=== PATIENT | female | born 1955 | race Two or more races ===

== ENCOUNTER 2017-05-30 09:57 | Inpatient (IN) | payer MEDICAID ==
[~2017-05-30] VITALS: Ht 147.3 cm; Wt 61.5 kg
[2017-05-30 10:39] LABS: Basophils # (auto) 0 uL; Basophils % (auto) 0.7 % (0.0-2.0); Eosinophils # (auto) 0.1 uL; Eosinophils % (auto) 2.5 % (0.0-7.0); Hematocrit 37.6 % (36.0-46.0); Hemoglobin 12.6 g/dL (12.2-16.2); Lymphocytes # (auto) 1.9 uL; Lymphocytes % (auto) 37.2 % (10.0-50.0); Mean Corpuscular Hemoglobin 30.5 pg (28.0-32.0); Mean Corpuscular Hgb Conc. 33.6 g/dL (32.0-36.0); Mean Corpuscular Volume 90.8 fL (80.0-100.0); Monocytes # (auto) 0.3 uL; Monocytes % (auto) 6.6 % (0.0-12.0); Neutrophils # (auto) 2.7 uL; Nucleated Red Blood Cells % 0.2 %; Platelet Count (auto) 147 10^3/uL (140-450); Red Blood Cells 4.14 10^6/uL (4.0-5.20); Red Cell Distribution Width 13.6 % (11.8-14.3)
[2017-05-30 10:57] LABS: Albumin 3.3 g/dL (3.4-5.0); Bilirubin, Total 0.4 mg/dL (0.2-1.0); Calcium 8.1 mg/dL (8.5-10.1); Magnesium 2.5 mg/dL (1.6-2.6); Total Protein 6.4 g/dL (6.4-8.2)
[2017-05-30] MEDS ORDERED: ASPirin-EC 81 mg tab PO ONE ×2 (13:15→14:00)
[2017-05-30 13:18] LABS: INR 0.95 (0.9-1.15); Partial Thromboplastin Time 25.7 sec (22.64-33.71); Prothrombin Time 10.4 sec (9.37-12.3)
[2017-05-30] MEDS ORDERED: METOPROLOL SUCCINATE XL 50 MG TAB PO ONE (14:00)
[2017-05-30] MEDS ORDERED: METHADONE HCL 10 MG TAB PO ONE (14:00)
[2017-05-30] MEDS ORDERED: CLOPIDOGREL BISULFATE 75 MG TAB PO ONE (14:00)
[2017-05-30] MEDS ORDERED: ONDANSETRON HCL 4 MG/2 ML VIAL IV PRN (14:15)
[2017-05-30] MEDS ORDERED: ALUM & MAG HYDROX-SIMETH LIQ(MAALOX) 30 ML PO ONE (14:15)
[2017-05-30] MEDS ORDERED: MORPHINE SULF INJ 2 MG/ML SYRINGE 1ML IV PRN (14:15)
[2017-05-30] MEDS ORDERED: NITROGLYCERIN 0.4 MG SL TAB SL PRN ×2 (14:15)
[2017-05-30] MEDS ORDERED: ZOLPIDEM TARTRATE 5 MG TAB PO PRN (14:15)
[2017-05-30] MEDS ORDERED: PANTOPRAZOLE 40 MG TAB PO ONE (14:15)
[2017-05-30] MEDS ORDERED: MORPHINE SULFATE 10 MG/ML INJ 1ML SDV IV PRN (14:15)
[2017-05-30 18:42] LABS: Urine Bacteria NONE SEEN /hpf (None Seen); Urine Blood Negative /uL (Negative); Urine Mucus FEW (None Seen); Urine Specific Gravity 1.014 (1.001-1.035); Urine WBC <1 /hpf (0 - 5)
[2017-05-30 22:00] VITALS: BP 136/87
[2017-05-30] MEDS: SODIUM CHLOR 0.9% PF (SALINE LOCK) 10ML VIAL IV SCH (22:21)
[2017-05-30] MEDS: ATORVASTATIN 20 MG TAB PO SCH (22:22)
[2017-05-30] MEDS: ENALAPRIL MALEATE 2.5 MG TAB PO SCH (22:22)
[2017-05-30] MEDS: clonazePAM 0.5 MG TAB PO PRN (22:23)
[2017-05-30] MEDS: ACETAMINOPHEN 325 MG TAB PO PRN (22:23)
[2017-05-30 22:30] VITALS: BP 136/87
[2017-05-30] MEDS ORDERED: CLON0.5T PO (22:38)
[2017-05-30] MEDS ORDERED: ASPI81TA27 PO (22:38)
[2017-05-30] MEDS ORDERED: CLOP75TA28 PO (22:38)
[2017-05-31] MEDS: ACETAMINOPHEN 325 MG TAB PO PRN ×2 (03:01→21:48)
[2017-05-31 05:00] VITALS: BP 123/85
[2017-05-31] MEDS: SODIUM CHLOR 0.9% PF (SALINE LOCK) 10ML VIAL IV SCH ×3 (06:09→21:50)
[2017-05-31] MEDS: PANTOPRAZOLE 40 MG TAB PO SCH (08:13)
[2017-05-31 08:17] LABS: Basophils # (auto) 0.1 uL; Eosinophils # (auto) 0.1 uL; Eosinophils % (auto) 1.9 % (0.0-7.0); Hematocrit 42.4 % (36.0-46.0); Hemoglobin 14.5 g/dL (12.2-16.2); Lymphocytes # (auto) 2.1 uL; Lymphocytes % (auto) 33.6 % (10.0-50.0); Mean Corpuscular Hemoglobin 30.7 pg (28.0-32.0); Mean Corpuscular Hgb Conc. 34.2 g/dL (32.0-36.0); Mean Corpuscular Volume 89.7 fL (80.0-100.0); Monocytes # (auto) 0.3 uL; Monocytes % (auto) 5.3 % (0.0-12.0); Neutrophils # (auto) 3.7 uL; Neutrophils % (auto) 58.2 % (37.0-80.0); Nucleated Red Blood Cells % 0.1 %; Platelet Count (auto) 142 10^3/uL (140-450); Red Blood Cells 4.73 10^6/uL (4.0-5.20); Red Cell Distribution Width 13.6 % (11.8-14.3); White Blood Cell 6.4 10^3/uL (4.4-10.8)
[2017-05-31 08:34] LABS: Albumin 3.3 g/dL (3.4-5.0); BUN/Creatinine Ratio 17.9; Bilirubin, Total 0.5 mg/dL (0.2-1.0); Calcium 8.3 mg/dL (8.5-10.1); Magnesium 2.5 mg/dL (1.6-2.6); Total Protein 6.7 g/dL (6.4-8.2)
[2017-05-31 09:14] VITALS: BP 126/81
[2017-05-31] MEDS: ASPirin-EC 81 mg tab PO SCH (10:22)
[2017-05-31] MEDS: METOPROLOL SUCCINATE XL 50 MG TAB PO SCH (10:23)
[2017-05-31] MEDS: CLOPIDOGREL BISULFATE 75 MG TAB PO SCH (10:23)
[2017-05-31] MEDS: ENALAPRIL MALEATE 2.5 MG TAB PO SCH ×2 (10:24→21:46)
[2017-05-31] MEDS: DOCUSATE SOD 100 MG CAP PO SCH (10:25)
[2017-05-31] MEDS: METHADONE HCL 10 MG TAB PO SCH (10:27)
[2017-05-31] MEDS: clonazePAM 0.5 MG TAB PO PRN ×2 (10:28→21:46)
[2017-05-31 12:06] VITALS: BP 125/64
[2017-05-31 17:18] VITALS: BP 105/77
[2017-05-31 20:00] VITALS: BP 111/80
[2017-05-31] MEDS: ATORVASTATIN 20 MG TAB PO SCH (21:45)
[2017-05-31 21:52] VITALS: BP 111/80
[2017-06-01 05:00] VITALS: BP 97/70
[2017-06-01] MEDS: SODIUM CHLOR 0.9% PF (SALINE LOCK) 10ML VIAL IV SCH ×2 (06:26→14:00)
[2017-06-01 07:40] VITALS: BP 101/70
[2017-06-01] MEDS: ASPirin-EC 81 mg tab PO SCH (08:17)
[2017-06-01] MEDS: PANTOPRAZOLE 40 MG TAB PO SCH (08:17)
[2017-06-01] MEDS: DOCUSATE SOD 100 MG CAP PO SCH (08:17)
[2017-06-01] MEDS: CLOPIDOGREL BISULFATE 75 MG TAB PO SCH (08:17)
[2017-06-01] MEDS: METOPROLOL SUCCINATE XL 50 MG TAB PO SCH (08:18)
[2017-06-01] MEDS: clonazePAM 0.5 MG TAB PO PRN (08:18)
[2017-06-01] MEDS: METHADONE HCL 10 MG TAB PO SCH (09:19)
[2017-06-01] MEDS: ENALAPRIL MALEATE 2.5 MG TAB PO SCH (09:19)
[2017-06-01 11:26] VITALS: BP 91/64
[2017-06-01 13:20] VITALS: BP 98/64
== END 2017-06-01 16:00 | disposition home or self-care (01) | DRG 190 ==
LOC: EDBD 09:57 → ER 09:57 → TELE 09:58 → TELE-CENTR 21:10
PROVIDERS: ADMIT Internal Medicine; ATTEND Internal Medicine
DX: I21.9 Acute myocardial infarction, unspecified (principal); I13.0 Hypertensive heart and chronic kidney disease with heart failure and stage 1 through stage 4 chronic kidney disease, or unspecified chronic kidney disease; I42.9 Cardiomyopathy, unspecified; E44.0 Moderate protein-calorie malnutrition; I25.10 Atherosclerotic heart disease of native coronary artery without angina pectoris; E78.5 Hyperlipidemia, unspecified; J44.9 Chronic obstructive pulmonary disease, unspecified; K21.9 Gastro-esophageal reflux disease without esophagitis; N18.9 Chronic kidney disease, unspecified; R94.6 Abnormal results of thyroid function studies; F17.210 Nicotine dependence, cigarettes, uncomplicated; Z53.29 Procedure and treatment not carried out because of patient's decision for other reasons; Z95.810 Presence of automatic (implantable) cardiac defibrillator; Z82.49 Family history of ischemic heart disease and other diseases of the circulatory system; Z68.28 Body mass index [BMI] 28.0-28.9, adult; Z83.3 Family history of diabetes mellitus; Z95.5 Presence of coronary angioplasty implant and graft
CPT/HCPCS: 36415; 71046; 71250; 80053; 80061; 81001; 83735; 83880; 84443; 84484; 85025; 85610; 85730; 87081; 93005; 93306; 94761

== ENCOUNTER 2018-07-20 08:20 | Emergency (ER) | payer MEDICAID ==
[~2018-07-20] VITALS: Ht 162.6 cm; Wt 68.0 kg
[~2018-07-20 08:20] MED LIST: ASPI81TA27 PO; CLON0.5T PO; CLOP75TA28 PO
[2018-07-20 10:23] LABS: Basophils # (auto) 0 uL; Basophils % (auto) 0.5 % (0.0-2.0); Eosinophils # (auto) 0.1 uL; Eosinophils % (auto) 0.8 % (0.0-7.0); Hematocrit 40.6 % (36.0-46.0); Hemoglobin 13.2 g/dL (12.2-16.2); Lymphocytes # (auto) 1.4 uL; Lymphocytes % (auto) 20.8 % (10.0-50.0); Mean Corpuscular Hgb Conc. 32.6 g/dL (32.0-36.0); Mean Corpuscular Volume 88.9 fL (80.0-100.0); Monocytes # (auto) 0.4 uL; Monocytes % (auto) 5.3 % (0.0-12.0); Neutrophils # (auto) 4.8 uL; Neutrophils % (auto) 72.6 % (37.0-80.0); Nucleated Red Blood Cells % 0.1 %; Platelet Count (auto) 205 10^3/uL (140-450); Red Blood Cells 4.57 10^6/uL (4.0-5.20); Red Cell Distribution Width 13.9 % (11.8-14.3); White Blood Cell 6.6 10^3/uL (4.4-10.8)
[2018-07-20 10:33] LABS: Albumin 3.5 g/dL (3.4-5.0); Anion Gap 7 (5-15); Calcium 8.1 mg/dL (8.5-10.1); Carbon Dioxide 21 mmol/L (21-32); Chloride 114 mmol/L (98-107); Glucose 75 mg/dL (74-106); Potassium 3.4 mmol/L (3.5-5.1); Sodium 142 mmol/L (136-145)
[2018-07-20 10:40] LABS: Alanine Aminotransferase 14 U/L (13-56); Alkaline Phosphatase 82 U/L (45-117); Aspartate Aminotransferase 15 U/L (15-37); Bilirubin, Total 0.3 mg/dL (0.2-1.0); Blood Urea Nitrogen 15 mg/dL (7-18); GFR African American 77 mL/min; GFR Non-African American 64 mL/min; Total Protein 7.1 g/dL (6.4-8.2)
[2018-07-20 12:00] VITALS: BP 110/74
== END 2018-07-20 12:19 | disposition home or self-care (01) ==
LOC: ER 08:20 → EDBD 08:20 → ER 12:19
DX: T82.847A Pain due to cardiac prosthetic devices, implants and grafts, initial encounter (principal); M54.2 Cervicalgia; M25.512 Pain in left shoulder; M79.602 Pain in left arm; I25.10 Atherosclerotic heart disease of native coronary artery without angina pectoris; E78.5 Hyperlipidemia, unspecified; I10 Essential (primary) hypertension; I25.2 Old myocardial infarction; Z95.0 Presence of cardiac pacemaker; Z98.61 Coronary angioplasty status; Y84.8 Other medical procedures as the cause of abnormal reaction of the patient, or of later complication, without mention of misadventure at the time of the procedure; Y92.89 Other specified places as the place of occurrence of the external cause
CPT/HCPCS: 36415; 71045; 80053; 84484; 85025; 93005

== ENCOUNTER 2021-05-12 09:17 | Emergency (ER) | payer MEDICARE, MEDICAID ==
[~2021-05-12] VITALS: Ht 147.3 cm; Wt 56.2 kg
[~2021-05-12 09:17] MED LIST changes: +ASPI-543 PO; -ASPI81TA27 PO
[2021-05-12 11:45] VITALS: BP 149/74
[2021-05-12] MEDS ORDERED: clonazePAM 0.5 MG TAB PO ONE (11:45)
== END 2021-05-12 11:56 | disposition home or self-care (01) ==
LOC: ER 09:17
DX: F41.1 Generalized anxiety disorder (principal); E78.5 Hyperlipidemia, unspecified; I10 Essential (primary) hypertension; Z76.0 Encounter for issue of repeat prescription

== ENCOUNTER 2021-05-22 07:24 | Emergency (ER) | payer MEDICARE, MEDICAID ==
[~2021-05-22] VITALS: Ht 144.8 cm; Wt 54.4 kg
[2021-05-22] MEDS ORDERED: CLON-853 PO ×2 (07:45→10:35)
[2021-05-22] MEDS ORDERED: clonazePAM 0.5 MG TAB PO ONE (07:45)
[2021-05-22 07:46] VITALS: BP 144/81
== END 2021-05-22 10:31 | disposition home or self-care (01) ==
LOC: ER 07:24
DX: F41.9 Anxiety disorder, unspecified (principal); E78.5 Hyperlipidemia, unspecified; I10 Essential (primary) hypertension; Z76.0 Encounter for issue of repeat prescription

== ENCOUNTER 2021-06-08 05:52 | Emergency (ER) | payer MEDICARE, MEDICAID ==
[~2021-06-08] VITALS: Ht 144.8 cm; Wt 54.4 kg
[~2021-06-08 05:52] MED LIST changes: +CLON-853 PO
[2021-06-08 08:41] VITALS: BP 184/91
[2021-06-08] MEDS ORDERED: clonazePAM 0.5 MG TAB PO ONE (09:45)
== END 2021-06-08 09:47 | disposition home or self-care (01) ==
LOC: ER 05:52
DX: F41.9 Anxiety disorder, unspecified (principal); I10 Essential (primary) hypertension; I25.10 Atherosclerotic heart disease of native coronary artery without angina pectoris; E78.5 Hyperlipidemia, unspecified; Z95.0 Presence of cardiac pacemaker

== ENCOUNTER 2021-06-09 08:06 | Emergency (ER) | payer MEDICARE, MEDICAID ==
[~2021-06-09] VITALS: Ht 144.8 cm; Wt 52.2 kg
[2021-06-09 08:55] VITALS: BP 139/86
== END 2021-06-09 09:13 | disposition home or self-care (01) ==
LOC: ER 08:06
DX: F41.9 Anxiety disorder, unspecified (principal); E78.5 Hyperlipidemia, unspecified; I10 Essential (primary) hypertension; Z76.0 Encounter for issue of repeat prescription

== ENCOUNTER 2021-06-19 07:21 | Emergency (ER) | payer MEDICARE, MEDICAID ==
[~2021-06-19] VITALS: Ht 144.8 cm; Wt 54.0 kg
[2021-06-19] MEDS ORDERED: clonazePAM 0.5 MG TAB PO ONE (07:45)
[2021-06-19 07:53] VITALS: BP 152/92
== END 2021-06-19 08:02 | disposition home or self-care (01) ==
LOC: ER 07:21
DX: F41.8 Other specified anxiety disorders (principal); I10 Essential (primary) hypertension; I25.10 Atherosclerotic heart disease of native coronary artery without angina pectoris; E78.5 Hyperlipidemia, unspecified; F17.210 Nicotine dependence, cigarettes, uncomplicated; Z76.0 Encounter for issue of repeat prescription; Z95.0 Presence of cardiac pacemaker; Z79.82 Long term (current) use of aspirin; Z79.01 Long term (current) use of anticoagulants; Z79.899 Other long term (current) drug therapy

== ENCOUNTER 2021-06-20 07:13 | Emergency (ER) | payer MEDICARE, MEDICAID ==
[~2021-06-20] VITALS: Ht 144.8 cm; Wt 45.4 kg
[2021-06-20] MEDS ORDERED: clonazePAM 0.5 MG TAB PO ONE (08:15)
[2021-06-20 08:25] VITALS: BP 164/91
== END 2021-06-20 10:25 | disposition home or self-care (01) ==
LOC: ER 07:13
DX: F41.9 Anxiety disorder, unspecified (principal); I10 Essential (primary) hypertension; I25.10 Atherosclerotic heart disease of native coronary artery without angina pectoris; E78.5 Hyperlipidemia, unspecified; F17.210 Nicotine dependence, cigarettes, uncomplicated; Z76.0 Encounter for issue of repeat prescription; Z95.0 Presence of cardiac pacemaker